=== PATIENT | female | born 1950 | race Caucasian/White ===

== ENCOUNTER 2019-04-20 15:33 | Emergency (ER) | payer OTHER ==
[~2019-04-20] VITALS: Ht 154.9 cm; Wt 72.6 kg
[2019-04-20 16:24] LABS: Basophils # (auto) 0 uL; Basophils % (auto) 0.6 % (0.0-2.0); Eosinophils # (auto) 0 uL; Eosinophils % (auto) 0.4 % (0.0-7.0); Hematocrit 32.8 % (36.0-46.0); Lymphocytes # (auto) 0.9 uL; Mean Corpuscular Hemoglobin 29.6 pg (28.0-32.0); Mean Corpuscular Hgb Conc. 33.6 g/dL (32.0-36.0); Monocytes # (auto) 0.6 uL; Neutrophils # (auto) 6.2 uL; Platelet Count (auto) 205 10^3/uL (140-450); Red Blood Cells 3.72 10^6/uL (4.0-5.20); White Blood Cell 7.8 10^3/uL (4.4-10.8)
[2019-04-20 16:42] LABS: Albumin 3.4 g/dL (3.4-5.0); Anion Gap 7 (5-15); Blood Urea Nitrogen 21 mg/dL (7-18); Carbon Dioxide 24 mmol/L (21-32); Chloride 108 mmol/L (98-107); Glucose 88 mg/dL (74-106); Magnesium 1.8 mg/dL (1.6-2.6); Potassium 3.5 mmol/L (3.5-5.1); Sodium 139 mmol/L (136-145)
[2019-04-20 16:47] LABS: Alanine Aminotransferase 9 U/L (13-56); Alkaline Phosphatase 59 U/L (45-117); Aspartate Aminotransferase 13 U/L (15-37); BUN/Creatinine Ratio 13.5; Bilirubin, Total 0.4 mg/dL (0.2-1.0); GFR African American 43 mL/min; GFR Non-African American 35 mL/min; Total Protein 7.2 g/dL (6.4-8.2)
[2019-04-20 17:51] LABS: Urine Bacteria FEW /hpf (None Seen); Urine Blood Negative /uL (Negative); Urine Specific Gravity 1.003 (1.001-1.035); Urine WBC <1 /hpf (0 - 5)
[2019-04-20 18:47] VITALS: BP 113/80
== END 2019-04-20 19:16 | disposition home or self-care (01) ==
LOC: EDBD 15:33 → ER 15:41
DX: I95.9 Hypotension, unspecified (principal); T50.905A Adverse effect of unspecified drugs, medicaments and biological substances, initial encounter; K21.9 Gastro-esophageal reflux disease without esophagitis; Z90.49 Acquired absence of other specified parts of digestive tract; Z90.710 Acquired absence of both cervix and uterus; Y92.89 Other specified places as the place of occurrence of the external cause
CPT/HCPCS: 36415; 71045; 80053; 81001; 83735; 84484; 85025; 93005; 94761